=== PATIENT | female | born 1985 | race Asian ===

== ENCOUNTER → 2019-08-05 | Outpatient (CLI) | payer OTHER ==
--- NOTE | 2019-08-05 17:32 | RAD ---
EXAM: Obstetrics sonogram. HISTORY: Large for dates. TECHNIQUE: Sonographic imaging of a gravid uterus was performed. COMPARISON: None. FINDINGS: There is a single intrauterine fetus in cephalic presentation with a normal heart rate of 150 bpm. There is a grade 1 anterior placenta without evidence of placental previa. The amniotic fluid index is normal. The cervix is closed and measures 0.5 cm in length. There is a four-chamber heart. There is a 2 vessel umbilical cord with normal insertion. The bladder, stomach, kidneys, spine and brain are unremarkable. The biparietal diameter is 5.91 cm, corresponding with 24 weeks and 1 day. The head circumference is 22.02 cm, corresponding with 24 weeks and 0 days. The abdominal circumference is 18.56 cm, corresponding with 23 weeks and 2 days. The femoral length is 4.49 cm, corresponding with 24 weeks and 6 days. The estimated gestational age patient combined ultrasound measurements is 24 weeks and 4 days and the estimated weight is 652 g. This corresponds with the 44th percentile for a gestational age of 23 weeks and 6 days based on LMP. The estimated due date is 11/24/2019. IMPRESSION: 1. Single intrauterine fetus in cephalic presentation with normal heart rate and gestational age based on ultrasound measurements of 24 weeks and 4 days. The estimated weight is at the 44th percentile for a gestational age of 23 weeks and 6 days based on LMP. 2. Two-vessel umbilical cord. Electronically signed by: Remedios Franklin MD (08/05/2019 5:29 PM) [id number]
== END ==
LOC: US 14:22
PROVIDERS: ATTEND Family Medicine
DX: Z34.92 Encounter for supervision of normal pregnancy, unspecified, second trimester (principal); Z3A.24 24 weeks gestation of pregnancy
CPT/HCPCS: 76805

== ENCOUNTER 2019-11-21 05:57 | Inpatient (IN) | payer OTHER ==
[~2019-11-21] VITALS: Ht 154.9 cm; Wt 73.9 kg
[2019-11-21] MEDS ORDERED: ACETAMINOPHEN 325 MG TABLET. PO PRN ×3 (06:15→17:30)
[2019-11-21] MEDS ORDERED: IV RINGERS,LACTATED 1000ML 1,000 ML IV PRN (06:15)
[2019-11-21 06:33] LABS: BILIRUBIN,URINE NEGATIVE (NEG); CLARITY,URINE CLEAR; COLOR,URINE YELLOW; NITRITE,URINE NEGATIVE (NEG); PH,URINE 7.5 (<5.0-8.0); PROTEIN,URINE NEGATIVE (NEG-TRACE); UROBILINOGEN,URINE 0.2 mg/dL (0.2 mg/dL)
[2019-11-21 06:40] LABS: AMPHETAMINE/METHAMPHETAMINE NEG (NEG); BARBITURATES NEG (NEG); BENZODIAZEPINES NEG (NEG); CANNABINOIDS NEG (NEG); COCAINE NEG (NEG); METHADONE NEG (NEG); OPIATES NEG (NEG); PHENCYCLIDINE NEG (NEG)
[2019-11-21 06:46] LABS: BACTERIA,URINE FEW /HPF (0-FEW); RBC,URINE 0 /HPF (0-2); SQUAMOUS EPITHELIAL CELL,UR MOD /LPF
[2019-11-21 07:15] VITALS: BP 102/64
[2019-11-21] MEDS ORDERED: IV RINGERS,LACTATED 1000ML 1,000 ML IV SCH ×2 (08:11→09:57)
[2019-11-21] MEDS ORDERED: fentaNYL PF VIAL 100 MCG/2 ML VIAL IVP PRN ×2 (08:15)
[2019-11-21] MEDS ORDERED: TERBUTALINE 1 MG/ML VIAL. SQ PRN (08:15)
[2019-11-21] MEDS ORDERED: LIDOCAINE 1% PF 30 ML VIAL. INJ PRN (08:15)
[2019-11-21] MEDS ORDERED: IBUPROFEN 400 MG TABLET. PO PRN (08:15)
[2019-11-21] MEDS ORDERED: OXYTOCIN 30 UNIT/500 ML PREMIX 500 ML IV PRN ×3 (08:15→17:30)
[2019-11-21] MEDS ORDERED: ONDANSETRON PF 4 MG/2 ML VIAL. IVP PRN (08:15)
[2019-11-21] MEDS ORDERED: 0.9 % SODIUM CHLORIDE 10 ML DISP.SYRIN. IV PRN ×2 (08:15→17:30)
[2019-11-21] MEDS ORDERED: CITRIC ACID/SODIUM CITRATE 30 ML SOLUTION. PO PRN (08:15)
[2019-11-21 09:21] LABS: BASO % 0 % (0-3); EOS # 0.1 x10^3/uL (0.0-0.7); EOS % 1 % (0-3); HEMATOCRIT 39.7 % (36.0-47.0); HEMOGLOBIN 13.6 g/dL (12.0-15.5); LYMPH # 1.7 x10^3/uL (1.0-4.8); LYMPH % 12 % (24-48); MEAN CORPUSCULAR HEMOGLOBIN 29 pg (25-35); MEAN CORPUSCULAR HGB CONC 34 g/dL (31-37); MEAN CORPUSCULAR VOLUME 85 fL (79-100); MONO % 7 % (0-9); NEUT # 11.7 x10^3/uL (1.8-7.7); NEUT % 80 % (31-73); PLATELET COUNT 253 x10^3/uL (140-400); RED BLOOD COUNT 4.67 x10^6/uL (3.50-5.40); RED CELL DISTRIBUTION WIDTH 13.2 % (11.5-14.5); WHITE BLOOD COUNT 14.6 x10^3/uL (4.0-11.0)
[2019-11-21] MEDS ORDERED: ROPIVacaine 0.2% PF 10 ML VIAL. ONE ×2 (09:27→10:00)
[2019-11-21] MEDS ORDERED: L&D EPIDURAL SYRINGE 50 ML ONE (09:27)
[2019-11-21] MEDS ORDERED: NALOXONE 0.4 MG/ML VIAL. IV PRN (10:00)
[2019-11-21] MEDS ORDERED: ROPIVacaine 0.2% PF 10 ML VIAL. EPID PRN (10:00)
[2019-11-21] MEDS ORDERED: L&D EPIDURAL 50 ML SYRINGE. ONE (10:00)
[2019-11-21 10:02] LABS: PLT ESTIMATE ADEQUATE (ADEQUATE)
[2019-11-21] MEDS ORDERED: OXYTOCIN PREMIX 30 UNIT/500 ML NS BAG. IV ONE (11:00)
[2019-11-21] MEDS: L&D EPIDURAL SYRINGE 50 ML EPID PRN ×2 (12:43→15:52)
--- NOTE | 2019-11-21 13:58 | PDOC1 ---
OB - History Hx of Present Care: Good Care Ultrasounds: Normal mid trimester US Obstetrical Complications: None Medical Complications: Other (Late care) Past Family/Social History * Past Medical, Surgical, Family and Obstetric Histories reviewed from chart. Blood Type: B+ Rubella: Not Immune RPR/VDRL: Negative GBS Status: Negative HBsAG: Negative OB - Chief Complaint & HPI Date of Admission: Date of Admission: Nov 21, 2019 at 05:57 Chief Complaint/History : 4 Para: 3 EDC: Nov 21, 2019 Reason for admission: active labor Admission Nurse Assessment Rev: Yes OB - Admission Exam Physical Exam Vitals: VS - Last 72 Hours, by Label Date Time Temp Pulse Resp B/P (MAP) Pulse Ox O2 Delivery O2 Flow Rate FiO2 11/21/19 12:43 16 Room Air 11/21/19 07:15 98.5 88 20 102/64 (77) Room Air 98.5 HEENT: Normal, Nasal Mucosa Normal, Oropharynx Normal, Moist Membranes, Fontanelles Normal Lungs: Clear, Equal Abdomen: Gravid Extremities: Normal Pulses, No tenderness or swelling Reflexes: Normal Cervical Dilatation: 2cm Effacement: 75% Station: -3 Membranes: Ruptured Amniotic Fluid: Thin Meconium Heart Rate: Normal Accelerations: Accelerations Present Decelerations: No decelerations Short Term Variability: Present Boiler Tester Variability: Moderate Contractions on Admission: < 5 Minutes Apart Intensity: RADHA Forbes MD Nov 21, 2019 13:58
[2019-11-21] MEDS ORDERED: MAGNESIUM HYDROXIDE 2,400 MG/30 ML ORAL.SUSP. PO PRN (17:30)
[2019-11-21] MEDS ORDERED: diphenhydrAMINE HCL 25 MG CAPSULE PO PRN (17:30)
[2019-11-21] MEDS ORDERED: BENZOCAINE 20% TOPICAL AEROSOL SPRAY 57GM CAN. TP PRN (17:30)
[2019-11-21] MEDS ORDERED: ZOLPIDEM 5 MG TABLET. PO PRN (17:30)
[2019-11-21] MEDS ORDERED: MAG HYDROX/ALUMINUM HYD/SIMETH 30 ML ORAL.SUSP PO PRN (17:30)
[2019-11-21] MEDS ORDERED: SIMETHICONE 80 MG TAB.CHEW PO PRN (17:30)
[2019-11-21] MEDS ORDERED: PHENYLEPH/MINERAL OIL/PETROLAT RECTAL OINTMENT TUBE. RC PRN (17:30)
[2019-11-21] MEDS ORDERED: HYDROCORTISONE 1% TOPICAL OINTMENT 30GM TUBE. TP PRN (17:30)
[2019-11-21] MEDS ORDERED: TDaP (Adacel) per PROTOCOL. MC PRN (17:30)
[2019-11-21] MEDS ORDERED: MMR per PROTOCOL. MC PRN (17:30)
[2019-11-21] MEDS ORDERED: HYDROcodone/APAP 5/325MG 1 TAB TABLET PO PRN (17:30)
--- NOTE | 2019-11-21 20:33 | OP ---
DATE OF SURGERY: 11/21/2019 DELIVERY NOTE CLINICAL COURSE: This patient is a G4, P3 [place] female, who was admitted in active labor at term on due date. She had risk of late care and advanced maternal age, presented in active labor, was noted to have a 2-vessel cord, had light meconium on rupture of membranes. She had epidural anesthesia at 3 cm and proceeded to complete without complication, delivering a viable male . Initially, head was delivered and suctioned. Subsequently, body was delivered and 30 seconds of cord resuscitation was done. Suctioning was re-done prior to this and cord was clamped and transected. Infant was handed off and placenta was delivered intact. Uterus was firm with Pitocin and palpation. There was approximately 250 mL blood loss. A second-degree midline laceration was noted and sutured with 3-0 chromic in a running locking fashion. There was good hemostasis. Vaginal vault was inspected and cervix was inspected without laceration. Mother and baby to recovery in stable condition. RADHA SINGLETARY MD DR: ROBERTO/laura JOB#: [id number] / [id number]
[2019-11-21 21:00] VITALS: BP 99/53
[2019-11-21] MEDS: HYDROcodone/APAP 5/325MG 1 TAB TABLET PO PRN (21:04)
[2019-11-21] MEDS: IBUPROFEN 400 MG TABLET. PO SCH (21:50)
[2019-11-21 21:57] VITALS: BP 101/63
[2019-11-22 01:36] VITALS: BP 95/50
[2019-11-22] MEDS: HYDROcodone/APAP 5/325MG 1 TAB TABLET PO PRN ×2 (04:25→15:17)
[2019-11-22 05:29] LABS: BASO % 0 % (0-3); EOS # 0.2 x10^3/uL (0.0-0.7); EOS % 1 % (0-3); HEMATOCRIT 36.3 % (36.0-47.0); HEMOGLOBIN 12.5 g/dL (12.0-15.5); LYMPH # 2.3 x10^3/uL (1.0-4.8); LYMPH % 15 % (24-48); MEAN CORPUSCULAR HEMOGLOBIN 29 pg (25-35); MEAN CORPUSCULAR HGB CONC 34 g/dL (31-37); MEAN CORPUSCULAR VOLUME 85 fL (79-100); MONO # 1.1 x10^3/uL (0.0-1.1); MONO % 7 % (0-9); NEUT # 12.1 x10^3/uL (1.8-7.7); NEUT % 77 % (31-73); PLATELET COUNT 204 x10^3/uL (140-400); RED BLOOD COUNT 4.29 x10^6/uL (3.50-5.40); RED CELL DISTRIBUTION WIDTH 13.2 % (11.5-14.5); WHITE BLOOD COUNT 15.8 x10^3/uL (4.0-11.0)
[2019-11-22] MEDS: IBUPROFEN 400 MG TABLET. PO SCH ×3 (05:43→23:26)
[2019-11-22 05:50] VITALS: BP 81/53
[2019-11-22] MEDS: FERROUS SULFATE 325 MG TABLET. PO SCH ×2 (08:00→17:00)
[2019-11-22] MEDS: MULTIVITAMIN with MINERAL TABLET. PO SCH (09:12)
[2019-11-22 11:30] VITALS: BP 88/58
--- NOTE | 2019-11-22 17:07 | PDOC ---
PROGRESS NOTES Subjective Subjective PPD # 1 doing well decreased bleeding . ambulating and tolerating diet Objective Objective Vital Signs Date Time Temp Pulse Resp B/P (MAP) Pulse Ox O2 Delivery O2 Flow Rate FiO2 11/22/19 15:17 18 Room Air 11/22/19 11:30 97.9 73 88/58 (68) 97 97.9 Physical Exam Abdomen: Normal bowel sounds, Soft, No tenderness, No hepatosplenomegaly, No masses, Other (uterus firm below umbilicus) Heart: Regular rate, Normal S1, Normal S2, No murmurs, Gallops Extremities: No clubbing, No cyanosis, No edema, Normal pulses, No tenderness/swelling, Other (Neg Julieta's) General: Alert, Oriented X3, Cooperative, No acute distress HEENT: Mucous membr. moist/pink Lungs: Clear to auscultation, Normal air movement MUSCULOSKELETAL: No joint tenderness, No deformity, No swelling, No muscular tenderness noted, Full range of motion without pain Neck: Supple, No JVD, No thyromegaly Neuro: Normal gait, Normal speech, Normal tone, Sensation intact, Reflexes 2+ Psych/Mental Status: Mental status NL, Mood NL Skin: No rashes, No breakdown, No significant lesion Assessment Assessment PPD # 1 Plan Plan of Care Routine care Comment Review of Relevant I have reviewed the following items wilfredo (where applicable) has been applied. Labs Laboratory Tests Test 11/21/19 06:28 11/21/19 08:23 11/22/19 05:00 Urine Collection Type Unknown Urine Color Yellow Urine Clarity Clear Urine pH 7.5 (<5.0-8.0) Urine Specific [place] 1.010 (1.000-1.030) Urine Protein Negative mg/dL (NEG-TRACE) Urine Glucose (UA) Negative mg/dL (NEG) Urine Ketones (Stick) Negative mg/dL (NEG) Urine Blood Negative (NEG) Urine Nitrite Negative (NEG) Urine Bilirubin Negative (NEG) Urine Urobilinogen Dipstick 0.2 mg/dL (0.2 mg/dL) Urine Leukocyte Esterase Trace (NEG) Urine RBC 0 /HPF (0-2) Urine WBC 1-4 /HPF (0-4) Urine Squamous Epithelial Cells Mod /LPF Urine Bacteria Few /HPF (0-FEW) Urine Opiates Screen Neg (NEG) Urine Methadone Screen Neg (NEG) Urine Barbiturates Neg (NEG) Urine Phencyclidine Screen Neg (NEG) Urine Amphetamine/Methamphetamine Neg (NEG) Urine Benzodiazepines Screen Neg (NEG) Urine Cocaine Screen Neg (NEG) Urine Cannabinoids Screen Neg (NEG) Urine Ethyl Alcohol Neg (NEG) White Blood Count 14.6 x10^3/uL (4.0-11.0) 15.8 x10^3/uL (4.0-11.0) Red Blood Count 4.67 x10^6/uL (3.50-5.40) 4.29 x10^6/uL (3.50-5.40) Hemoglobin 13.6 g/dL (12.0-15.5) 12.5 g/dL (12.0-15.5) Hematocrit 39.7 % (36.0-47.0) 36.3 % (36.0-47.0) Mean Corpuscular Volume 85 fL (79-100) 85 fL (79-100) Mean Corpuscular Hemoglobin 29 pg (25-35) 29 pg (25-35) Mean Corpuscular Hemoglobin Concent 34 g/dL (31-37) 34 g/dL (31-37) Red Cell Distribution Width 13.2 % (11.5-14.5) 13.2 % (11.5-14.5) Platelet Count 253 x10^3/uL (140-400) 204 x10^3/uL (140-400) Neutrophils (%) (Auto) 80 % (31-73) 77 % (31-73) Lymphocytes (%) (Auto) 12 % (24-48) 15 % (24-48) Monocytes (%) (Auto) 7 % (0-9) 7 % (0-9) Eosinophils (%) (Auto) 1 % (0-3) 1 % (0-3) Basophils (%) (Auto) 0 % (0-3) 0 % (0-3) Neutrophils # (Auto) 11.7 x10^3/uL (1.8-7.7) 12.1 x10^3/uL (1.8-7.7) Lymphocytes # (Auto) 1.7 x10^3/uL (1.0-4.8) 2.3 x10^3/uL (1.0-4.8) Monocytes # (Auto) 1.0 x10^3/uL (0.0-1.1) 1.1 x10^3/uL (0.0-1.1) Eosinophils # (Auto) 0.1 x10^3/uL (0.0-0.7) 0.2 x10^3/uL (0.0-0.7) Basophils # (Auto) 0.0 x10^3/uL (0.0-0.2) 0.0 x10^3/uL (0.0-0.2) Platelet Estimate Adequate (ADEQUATE) Large Platelets Occ Treponema pallidum Antibody Nonreactive (Nonreactive) Laboratory Tests Test 11/22/19 05:00 White Blood Count 15.8 x10^3/uL (4.0-11.0) Red Blood Count 4.29 x10^6/uL (3.50-5.40) Hemoglobin 12.5 g/dL (12.0-15.5) Hematocrit 36.3 % (36.0-47.0) Mean Corpuscular Volume 85 fL (79-100) Mean Corpuscular Hemoglobin 29 pg (25-35) Mean Corpuscular Hemoglobin Concent 34 g/dL (31-37) Red Cell Distribution Width 13.2 % (11.5-14.5) Platelet Count 204 x10^3/uL (140-400) Neutrophils (%) (Auto) 77 % (31-73) Lymphocytes (%) (Auto) 15 % (24-48) Monocytes (%) (Auto) 7 % (0-9) Eosinophils (%) (Auto) 1 % (0-3) Basophils (%) (Auto) 0 % (0-3) Neutrophils # (Auto) 12.1 x10^3/uL (1.8-7.7) Lymphocytes # (Auto) 2.3 x10^3/uL (1.0-4.8) Monocytes # (Auto) 1.1 x10^3/uL (0.0-1.1) Eosinophils # (Auto) 0.2 x10^3/uL (0.0-0.7) Basophils # (Auto) 0.0 x10^3/uL (0.0-0.2) Microbiology 11/21/19 Urine Culture - Final, Complete Medications Current Medications Ringer's Solution 1,000 ml @ 125 mls/hr Q8H PRN IV hydration; Start 11/21/19 at 06:15 Acetaminophen (Tylenol) 650 mg PRN Q6HRS PRN PO PAIN, TEMP > 100.5'F; Start 11/21/19 at 06:15; Stop 11/21/19 at 17:23; Status DC Sodium Chloride (Normal Saline Flush) 3 ml QSHIFT PRN IV AFTER MEDS AND BLOOD DRAWS; Start 11/21/19 at 08:15 Ringer's Solution 1,000 ml @ 125 mls/hr Q8H IV Last administered on 11/21/19at 10:43; Start 11/21/19 at 08:11 Fentanyl Citrate (Fentanyl 2ml Vial) 50 mcg PRN Q30MIN PRN IVP Mild to moderate pain; Start 11/21/19 at 08:15 Fentanyl Citrate (Fentanyl 2ml Vial) 100 mcg PRN Q30MIN PRN IVP Severe pain; Start 11/21/19 at 08:15 Acetaminophen (Tylenol) 650 mg PRN Q6HRS PRN PO MILD PAIN / TEMP > 100.3'F; Start 11/21/19 at 08:15; Stop 11/21/19 at 17:23; Status DC Ondansetron HCl (Zofran) 4 mg PRN Q4HRS PRN IVP NAUSEA/VOMITING; Start 11/21/19 at 08:15 Citric Acid/ Sodium Citrate (Bicitra) 30 ml 1X PRN PRN PO DYSPEPSIA; Start 11/21/19 at 08:15; Stop 11/22/19 at 08:14; Status DC Terbutaline Sulfate (Brethine) 0.25 mg 1X PRN PRN SQ SEE COMMENTS; Start 11/21/19 at 08:15; Stop 11/22/19 at 08:14; Status DC Lidocaine HCl (Xylocaine 1% Pf 30ml Vial) 30 ml 1X PRN PRN INJ SEE COMMENTS; Start 11/21/19 at 08:15; Stop 11/23/19 at 08:14 Oxytocin/Sodium Chloride 500 ml @ 0 mls/hr CONT PRN IV SEE I/O RECORD; Start 11/21/19 at 08:15 Oxytocin/Sodium Chloride 500 ml @ 0 mls/hr CONT PRN PRN IV Post delivery bleeding; Start 11/21/19 at 08:15 Ibuprofen (Motrin) 800 mg PRN Q6HRS PRN PO PAIN; Start 11/21/19 at 08:15; Stop 11/21/19 at 17:25; Status DC Ropivacaine (Naropin 0.2%) 10 ml STK-MED ONCE .ROUTE ; Start 11/21/19 at 09:27; Stop 11/21/19 at 09:27; Status DC Fentanyl Citrate 50 ml @ As Directed STK-MED ONCE .ROUTE ; Start 11/21/19 at 09:27; Stop 11/21/19 at 09:28; Status DC Ringer's Solution 1,000 ml @ 1,000 mls/hr Q1H IV ; Start 11/21/19 at 09:57; Stop 11/21/19 at 10:56; Status DC Naloxone HCl (Narcan) 0.04 mg PRN Q1MIN PRN IV SEE COMMENTS; Start 11/21/19 at 10:00 Fentanyl Citrate 50 ml @ 14 mls/hr CONT PRN EPID PAIN Last administered on 11/21/19at 15:52; Start 11/21/19 at 10:00 Ropivacaine (Naropin 0.2%) 20 ml 1X PRN PRN EPID PER ANESTHESIA; Start 11/21/19 at 10:00; Stop 11/22/19 at 09:59; Status DC Sodium Chloride (Normal Saline Flush) 10 ml QSHIFT PRN IV AFTER MEDS AND BLOOD DRAWS; Start 11/21/19 at 17:30 Oxytocin/Sodium Chloride 500 ml @ 62.5 mls/hr CONT PRN IV SEE I/O RECORD; Start 11/21/19 at 17:30; Stop 11/22/19 at 01:29; Status DC Acetaminophen (Tylenol) 650 mg PRN Q6HRS PRN PO MILD PAIN / TEMP > 100.3'F Last administered on 11/22/19at 09:12; Start 11/21/19 at 17:30 Ibuprofen (Motrin) 800 mg Q8HRS PO Last administered on 11/22/19at 13:34; Start 11/21/19 at 22:00 Magnesium Hydroxide (Milk Of Magnesia) 2,400 mg PRN DAILY PRN PO CONSTIPATION; Start 11/21/19 at 17:30 Al Hydroxide/Mg Hydroxide (Mylanta Plus Xs) 30 ml PRN Q4HRS PRN PO HEARTBURN / GAS; Start 11/21/19 at 17:30 Simethicone (Gas-X) 80 mg PRN AFTMEALHC PRN PO GAS / BLOATING; Start 11/21/19 at 17:30 Diphenhydramine HCl (Benadryl) 25 mg PRN Q6HRS PRN PO ITCHING; Start 11/21/19 at 17:30 Benzocaine (Americaine) 1 spray PRN QID PRN TP TOPICAL PAIN Last administered on 11/21/19at 18:37; Start 11/21/19 at 17:30 Phenyleph/Shark Oil/Min Oil/Petrol (Preparation H) 1 wing PRN QID PRN RC RECTAL PAIN; Start 11/21/19 at 17:30 Hydrocortisone (Cortaid) 1 wing PRN QID PRN TP PERINEAL PAIN; Start 11/21/19 at 17:30 Ferrous Sulfate (Feosol) 325 mg BIDWMEALS PO ; Start 11/22/19 at 08:00 Zolpidem Tartrate (Ambien) 5 mg PRN QHS PRN PO INSOMNIA, MAY REPEAT X1; Start 11/21/19 at 17:30 Info (Do NOT chart on this placeholder) 1 ea 1X PRN PRN MC SEE COMMENTS; Start 11/21/19 at 17:30 Info (Do NOT chart on this placeholder) 1 ea 1X PRN PRN MC SEE COMMENTS; Start 11/21/19 at 17:30 Multivitamins (Thera M Plus) 1 tab DAILY PO Last administered on 11/22/19at 09:12; Start 11/22/19 at 09:00 Acetaminophen/ Hydrocodone Bitart (Lortab 5/325) 1 tab PRN Q4HRS PRN PO MILD PAIN 1-3 Last administered on 11/22/19at 15:17; Start 11/21/19 at 17:30 Acetaminophen/ Hydrocodone Bitart (Lortab 5/325) 2 tab PRN Q4HRS PRN PO MODERATE PAIN, SEVERE PAIN; Start 11/21/19 at 17:30 Vitals/I & O Vital Sign - Last 24 Hours 11/21/19 11/21/19 11/21/19 11/21/19 21:00 21:00 21:56 21:57 Temp 97.7 97.7 97.7 97.7 Pulse 89 78 Resp 16 18 B/P (MAP) 99/53 (68) 101/63 (76) Pulse Ox 97 97 O2 Delivery Room Air Room Air Room Air Room Air 11/22/19 11/22/19 11/22/19 11/22/19 01:36 04:25 05:50 11:30 Temp 97.9 97.7 97.9 97.9 97.7 97.9 Pulse 79 77 73 Resp 16 16 16 B/P (MAP) 95/50 (65) 81/53 (62) 88/58 (68) Pulse Ox 96 98 97 O2 Delivery Room Air Room Air Room Air Room Air 11/22/19 15:17 Resp 18 O2 Delivery Room Air Justicifation of Admission Dx: Justifications for Admission: Justification of Admission Dx: Yes Comments: Term Delivered RADHA SINGLETARY MD Nov 22, 2019 17:07
[2019-11-22] MEDS ORDERED: HYDR-2761 PO (17:21)
[2019-11-22] MEDS ORDERED: IBUP-1060 PO (17:21)
[2019-11-22 17:40] VITALS: BP 90/56
[2019-11-22 23:29] VITALS: BP 103/60
[2019-11-23 06:19] VITALS: BP 100/68
[2019-11-23] MEDS: IBUPROFEN 400 MG TABLET. PO SCH (08:37)
[2019-11-23] MEDS: MULTIVITAMIN with MINERAL TABLET. PO SCH (08:37)
[2019-11-23] MEDS ORDERED: MEASLES, MUMPS & RUBELLA VACC 0.5 ML VIAL. VAX SQ ONE (09:00)
[2019-11-23] MEDS ORDERED: DIPH,PERTUSS(ACELL),TET VAC/PF 0.5 ML SYRINGE. VAX IM ONE (09:00)
--- NOTE | 2019-11-23 09:06 | PDOC3 ---
OB DISCHARGE SUMMARY DATE OF ADMISSION: 11/21/2019 DATE OF DISCHARGE: 11/23/2019 REASON FOR ADMISSION: Onset of labor PROBLEM LIST AT DISCHARGE Term delivered DISCHARGE INFORMATION: Activity (no sexual activity 6 weeks) HOSPITAL COURSE Routine CONDITION AT DISCHARGE Stable RADHA SINGLETARY MD Nov 23, 2019 09:06
[2019-11-23 09:34] VITALS: BP 95/65
--- NOTE | 2019-11-23 11:10 | NUR ---
Discharge and follow up instructions reviewed with pt per electrical control assembler. Dr. Akhtar also reviewed instructions with pt. Rx x2 given, Virgen ambulated pt out of the hospital with her and the electrical control assembler at her side. was placed securely in the infant car seat.
== END 2019-11-23 11:10 | disposition home or self-care (01) | DRG 807 ==
LOC: 3 SO LND 05:57 → 3 NORTH 20:50
PROVIDERS: ADMIT Family Medicine; ATTEND Family Medicine
PROC: 10E0XZZ Delivery of Products of Conception, External Approach (ICD-10-PCS; principal; 2019-11-21)
PROC: 0KQM0ZZ Repair Perineum Muscle, Open Approach (ICD-10-PCS; 2019-11-21)
PROC: 00HU33Z Insertion of Infusion Device into Spinal Canal, Percutaneous Approach (ICD-10-PCS; 2019-11-21)
PROC: 3E0R3BZ Introduction of Anesthetic Agent into Spinal Canal, Percutaneous Approach (ICD-10-PCS; 2019-11-21)
DX: O77.0 Labor and delivery complicated by meconium in amniotic fluid (principal); Z37.0 Single live birth; O70.1 Second degree perineal laceration during delivery; Z3A.40 40 weeks gestation of pregnancy
CPT/HCPCS: 36415; 80307; 81001; 85025; 86592; 86850; 86900; 86901; 87086; 90471; 90707; 90715; J2590; J2795; J3010; J7120; G0378